=== PATIENT | female | born 1990 | race Caucasian/White ===

== ENCOUNTER 2016-08-13 08:17 | Emergency (ER) | payer OTHER ==
[~2016-08-13] VITALS: Ht 152.4 cm; Wt 55.0 kg
[2016-08-13 08:27] VITALS: BP 153/98; PULSE 125; RESP 18; TEMP 98.6; O2SAT 100
[2016-08-13] MEDS ORDERED: OMEP10CA PO (08:40)
--- NOTE | 2016-08-13 08:54 | PD ---
HPI . Chairez act Chief Complaint: Psychiatric Symptoms Time Seen by Provider: 08:40 Travel History International Travel<30 days: No Contact w/Intl Traveler<30days: No Traveled to known affect area: No History of Present Illness HPI Patient was brought in in the custody of the police. Apparently she was arrested last night for drunkenness. The papers state that the patient was very emotional and aggressive. He was making statements that she wanted to kill herself. The patient now states that she was just intoxicated last night and said some things that she doesn't even remember saying today. She denies suicidal ideation at this point. Her only complaint at this point is that she is very thirsty. PFSH Past Medical History GERD: Yes Medical other: Yes (CELLICA DISEASE ) ?: Not Past Surgical History Surgical History: No Previous Surgery Social History Alcohol Use: Yes (OCC) Tobacco Use: No Substance Use: No Allergies-Medications (Allergen,Severity, Reaction): Uncoded Allergies: unknow antibiotic (Allergy, Intermediate, Rash, 08/13/16) Reported Meds & Prescriptions Reported Meds & Active Scripts Active Reported Omeprazole 10 Mg Cap Unknown Dose PO DAILY Review of Systems Except as stated in HPI: all other systems reviewed are Neg General / Constitutional: Positive: Other (thirsty), No: Fever, Chills HENT: No: Lightheadedness Cardiovascular: No: Chest Pain or Discomfort Respiratory: No: Cough, Shortness of Breath Gastrointestinal: No: Nausea, Vomiting, Diarrhea, Abdominal Pain Genitourinary: No: Urgency, Frequency, Dysuria Neurologic: No: Weakness, Dizziness Psychiatric: No: Depression, Suicidal Ideations, Mood Disorder, Substance Abuse (she states that she drank last night but she is not a substance abuser) Physical Exam Narrative GENERAL: She is a little tearful and very cooperative. She makes good eye contact with the examiner. SKIN: Warm and dry. HEAD: Atraumatic. Normocephalic. EYES: Pupils equal and round. ENT: No nasal bleeding or discharge. Mucous membranes pink and moist. NECK: Trachea midline. Neck supple. CARDIOVASCULAR: Regular rate and rhythm. Heart sounds normal. RESPIRATORY: No accessory muscle use. Lungs are clear with full air movement. GASTROINTESTINAL: Abdomen soft, non-tender, nondistended. MUSCULOSKELETAL: No obvious deformities. No edema. NEUROLOGICAL: Awake and alert. No obvious cranial nerve deficits. Motor grossly within normal limits. Normal speech. PSYCHIATRIC: Appropriate mood and affect; insight and judgment normal. Data Data Last Documented VS Vital Signs Date Time Temp Pulse Resp B/P Pulse Ox O2 Delivery O2 Flow Rate FiO2 08/13/16 08:37 95 18 08/13/16 08:27 98.6 153/98 100 Orders Complete Blood Count With Diff (08/13/16 08:41) Basic Metabolic Panel (Bmp) (08/13/16 08:41) Drug Screen, Random Urine (08/13/16 08:41) Ed Urine Pregnancytest Poc (08/13/16 08:41) Alcohol (Ethanol) (08/13/16 08:41) Psych Screen (08/13/16 08:41) Labs Laboratory Tests Test 08/13/16 08/13/16 06:45 09:20 White Blood Count 8.8 TH/MM3 Red Blood Count 4.69 MIL/MM3 Hemoglobin 14.1 GM/DL Hematocrit 40.9 % Mean Corpuscular Volume 87.3 FL Mean Corpuscular Hemoglobin 30.1 PG Mean Corpuscular Hemoglobin 34.4 % Concent Red Cell Distribution Width 12.9 % Platelet Count 187 TH/MM3 Mean Platelet Volume 10.0 FL Neutrophils (%) (Auto) 81.7 % Lymphocytes (%) (Auto) 12.5 % Monocytes (%) (Auto) 4.9 % Eosinophils (%) (Auto) 0.3 % Basophils (%) (Auto) 0.6 % Neutrophils # (Auto) 7.2 TH/MM3 Lymphocytes # (Auto) 1.1 TH/MM3 Monocytes # (Auto) 0.4 TH/MM3 Eosinophils # (Auto) 0.0 TH/MM3 Basophils # (Auto) 0.1 TH/MM3 CBC Comment DIFF FINAL Differential Comment Sodium Level 144 MEQ/L Potassium Level 3.8 MEQ/L Chloride Level 110 MEQ/L Carbon Dioxide Level 26.4 MEQ/L Anion Gap 8 MEQ/L Blood Urea Nitrogen 11 MG/DL Creatinine 0.87 MG/DL Estimat Glomerular Filtration 81 ML/MIN Rate Random Glucose 91 MG/DL Calcium Level 8.9 MG/DL Ethyl Alcohol Level 131 MG/DL Urine Opiates Screen NEG Urine Barbiturates Screen NEG Urine Amphetamines Screen NEG Urine Benzodiazepines Screen NEG Urine Cocaine Screen NEG Urine Cannabinoids Screen NEG MDM Medical Decision Making Medical Screen Exam Complete: Yes Emergency Medical Condition: Yes Differential Diagnosis Differential diagnosis includes but is not limited to depression, suicidal ideation, episode of poor judgment Narrative Course We'll do the psychiatric clearance exam area and I suspect that she will be released from the Chairez Act. Labs are normal with the exception of an alcohol level of 131. She is medically clear for psychiatric evaluation. Diagnosis Primary Impression: Acute alcohol intoxication Qualified Code: F10.120 - Acute alcohol intoxication, uncomplicated Condition: Stable Aleksandra Salgado MD Aug 13, 2016 08:54
[2016-08-13 08:58] LABS: AUTOMATED NEUTROPHIL # 7.2 TH/MM3 (1.8-7.7); BASOPHIL # 0.1 TH/MM3 (0-0.2); BASOPHIL % 0.6 % (0.0-2.0); EOSINOPHIL % 0.3 % (0.0-4.0); HEMATOCRIT 40.9 % (35.0-46.0); HEMO FLAGS DIFF FINAL; LYMPH % 12.5 % (9.0-44.0); LYMPHOCYTE # 1.1 TH/MM3 (1.0-4.8); MEAN CELL VOLUME 87.3 FL (80.0-100.0); MEAN CORPUSCULAR HEMOGLOBIN 30.1 PG (27.0-34.0); MEAN CORPUSCULAR HGB CONC 34.4 % (32.0-36.0); MONO % 4.9 % (0.0-8.0); NEUT % 81.7 % (16.0-70.0); PLATELET COUNT 187 TH/MM3 (150-450); RED BLOOD COUNT 4.69 MIL/MM3 (4.00-5.30); RED CELL DISTRIBUTION WIDTH 12.9 % (11.6-17.2); WHITE BLOOD COUNT 8.8 TH/MM3 (4.0-11.0)
[2016-08-13 09:14] LABS: BICARBONATE 26.4 MEQ/L (21.0-32.0); POTASSIUM 3.8 MEQ/L (3.5-5.1)
[2016-08-13 09:39] LABS: AMPHETAMINE, URINE NEG (NEG); BARBITURATES, URINE NEG (NEG); COCAINE, URINE NEG (NEG)
[2016-08-13 10:37] VITALS: BP 110/65; PULSE 104; RESP 20; TEMP 98.2; O2SAT 100
--- NOTE | 2016-08-13 11:46 | PD.CONS ---
Provisional Diagnosis Admission Date [place] I. Alcohol-induced mood disorder, alcohol abuse disorder [place] II. Deferred [place] III. Denies [place] IV. Alcohol use disorder [place] V. 55 History of Present Illness Service Psychiatry Consult Requested By Primary Care Physician No Primary Care Physician HPI The patient is a 25-year-old woman, domiciled with her boyfriend in [place], employed as a dental assistant broker, without any previous psychiatric history: No previous psychiatric hospitalization, no previous suicidal attempts , occasional use of alcohol, no significant medical history who was brought under Chairez act after being found emotionally disturbed by police in a hotel. Patient states that she was drinking alcohol last night, and she got drunk, which is unusual on her, her boyfriend have a kind of argument with a group of people in a bar and after that she became extremely anxious and labile. She doesn't remember exactly the details of what happened in the hotel, but she is started to scream and to act erratically and all the sudden the police came and arrested her and brought her to the ER. At the moment of this evaluation the patient denies depression, denies anxiety, denies suicidal or homicidal ideation , denies perceptual disturbances and ferdinand. Patient is logical and coherent, no delirium, delusions, paranoia, aggressive or disorganized behavior, withdrawal symptoms are observed or reported. She reports occasional use of alcohol, denies the use of illicit drug. Review of Systems Constitutional: DENIES: Diaphoretic episodes, Fatigue, Fever, Weight gain, Weight loss, Chills, Dizziness, Change in appetite, Night Sweats Endocrine: DENIES: Abnorml menstrual pattern, Heat/cold intolerance, Polydipsia , Polyuria, Polyphagia Eyes: DENIES: Blurred vision, Diplopia, Eye inflammation, Eye pain, Vision loss , Photosensitivity, Double Vision Ears, nose, mouth, throat: DENIES: Tinnitus, Hearing loss, Vertigo, Nasal discharge, Oral lesions, Throat pain, Hoarseness, Ear Pain, Running Nose, Epistaxis, Sinus Pain, Toothache, Odynophagia Respiratory: DENIES: Apneas, Cough, Snoring, Wheezing, Hemoptysis, Sputum production, Shortness of breath Cardiovascular: DENIES: Chest pain, Palpitations, Syncope, Dyspnea on Exertion , PND, Lower Extremity Edema, Orthopnea, Claudication Gastrointestinal: DENIES: Abdominal pain, Black stools, Bloody stools, Constipation, Diarrhea, Nausea, Vomiting, Difficulty Swallowing, Anorexia Genitourinary: DENIES: Abnormal vaginal bleeding, Dysmenorrhea, Dyspareunia, Sexual dysfunction, Urinary frequency, Urinary incontinence, Urgency, Hematuria , Dysuria, Nocturia, Vaginal discharge Musculoskeletal: DENIES: Joint pain, Muscle aches, Stiffness, Joint Swelling, Back pain, Neck pain Integumentary: DENIES: Abnormal pigmentation, Pruritus, Rash, Nail changes, Breast masses, Breast skin changes, Nipple discharge Hematologic/lymphatic: DENIES: Bruising, Lymphadenopathy Immunologic/allergic: DENIES: Eczema, Urticaria Neurologic: DENIES: Abnormal gait, Headache, Localized weakness, Paresthesias, Seizures, Speech Problems, Tremor, Poor Balance Psychiatric: DENIES: Anxiety, Confusion, Mood changes, Depression, Hallucinations, Agitation, Suicidal Ideation, Homicidal Ideation, Delusions Past Family Social History Uncoded Allergies: unknow antibiotic (Allergy, Intermediate, Rash, 08/13/16) Reported Medications Omeprazole 10 Mg CapUnknown Dose PO DAILY #30 CAP Ref 0 08/13/16 Family History She denies Social History Patient was born and raised in [place], she lives in [place] with her boyfriend , she is employed as a dental assistant broker, her highest level of education is college. Physical Exam Vital Signs Vital Signs Date Time Temp Pulse Resp B/P Pulse Ox O2 Delivery O2 Flow Rate FiO2 08/13/16 10:37 98.2 104 20 110/65 100 Room Air Mental Status Examination Appearance woman, who is younger than his stated age, she is calm and cooperative Speech: Unremarkable Orientation: x3 Memory: Unremarkable Thought Process: Logical Thought Content: Unremarkable Hallucination Type: None Suicidal Ideation: No Previous Suicide Attempts: No Homicidal Ideation: No Insight: Good Judgement: WNL Affect: Good Mood: Appropriate Motor Activity: Normal gait Assessment & Plan Problem List: (1) Alcohol abuse with alcohol-induced mood disorder Assessment & Plan: On psychiatric evaluation the patient does not present or report any evidence of depression, anxiety, ferdinand or perceptual disturbances. She denies suicidal or homicidal ideation. She denies visual or auditory hallucinations. Patient does not have any psychiatric history, she doesn't have any previous psychiatric hospitalizations, doesn't have any previous suicidal attempt. Now she is clinically sober. She doesn't present any criteria for psychiatric admission at this moment. [facility] be lifted. Patient will be discharged back with her boyfriend. Support, motivation psycho education provided. ICD Code: F10.14 Assessment & Plan Estimated LOS: days Aashish Tse MD Aug 13, 2016 11:46
[2016-08-13 13:10] VITALS: PULSE 88; RESP 16; O2SAT 99
== END 2016-08-13 14:00 | disposition home or self-care (01) ==
LOC: NEPE 08:17 → NEPJ 14:00
DX: F10.120 Alcohol abuse with intoxication, uncomplicated (principal); Y90.6 Blood alcohol level of 120-199 mg/100 ml
CPT/HCPCS: 80048; 80307; 80320; 84703; 85025; 99283